=== PATIENT | female | born 1990 | race Caucasian/White ===

== ENCOUNTER 2022-01-23 14:45 | Inpatient (IN) | payer OTHER, BC ==
[2022-01-23] MEDS ORDERED: Fentanyl 100 MCG/2 ML VIAL ONE ×2 (14:55→16:03)
[2022-01-23] MEDS ORDERED: Dextrose 5% in Water 1,000 ML IV PRN (16:10)
[2022-01-23] MEDS ORDERED: Dextrose 50% Abboject 50 ML SYRINGE SLOW IVP PRN (16:10)
[2022-01-23] MEDS ORDERED: hydrALAZINE 20 MG/ML VIAL SLOW IVP PRN (16:12)
[2022-01-23] MEDS ORDERED: Ondansetron PF 4 MG/2 ML Vial IVP PRN (16:12)
[2022-01-23] MEDS ORDERED: Promethazine HCl 25 MG/ML VIAL IM PRN (16:12)
[2022-01-23] MEDS ORDERED: traMADol HCl 50 MG TAB PO PRN (16:14)
[2022-01-23] MEDS ORDERED: Ketorolac Tromethamine 30 MG/ML VIAL IVP SCH ×2 (16:15→18:15)
[2022-01-23] MEDS ORDERED: Morphine 2 MG/ML VIAL ONE (17:03)
[2022-01-23 17:35] LABS: SARS-CoV-2 NAA Rapid Test Not Detected (NotDetected)
[2022-01-23 17:58] VITALS: BMI 36.8
[2022-01-23] MEDS: Ketorolac Tromethamine 30 MG/ML VIAL IVP SCH (18:08)
[2022-01-23] MEDS: traMADol HCl 50 MG TAB PO SCH (18:13)
[2022-01-23] MEDS: Morphine 2 MG/ML VIAL SLOW IVP PRN ×2 (18:19→21:25)
[2022-01-23] MEDS: Sodium Chloride 0.9% 1,000 ML IV SCH (18:19)
[2022-01-23 18:32] LABS: #Eosinphils 0.1 thou/uL (0.0-0.7); #Lymphocytes 2.2 thou/uL (1.20-3.40); #Monocytes 0.7 thou/uL (0.11-0.59); #Neutrophils 10.2 thou/uL (1.40-6.50); %Basophils 0.4 % (0.0-1.0); %Eosinophils 0.7 % (0.0-10.0); %Lymphocytes 16.8 % (21.0-51.0); %Neutrophils 77.2 % (42.0-75.0); Hemoglobin 13.7 g/dL (12.0-16.0); Mean Corpuscular HGB CONC 33.4 g/dL (32.0-36.0); Mean Corpuscular Hemoglobin 28.8 pg (27.0-31.0); Mean Corpuscular Volume 86.1 fL (78.0-98.0); Mean Platelet Volume 8.6 fL (7.4-10.4); Platelet Count 301 thou/uL (130-400); RBC Distribution Width 13.5 % (11.5-14.5); Red Blood Cell (RBC) Count 4.76 mill/uL (4.20-5.40); White Blood Cell (WBC) Count 13.3 thou/uL (4.8-10.8)
[2022-01-23 18:48] LABS: ALT (SGPT) 37 U/L (8-55); AST (SGOT) 27 U/L (5-34); Albumin 4.2 g/dL (3.5-5.0); Alkaline Phosphatase 74 U/L (40-110); Anion Gap 17 mmol/L (10-20); BUN (Urea Nitrogen) 12 mg/dL (7.0-18.7); Bilirubin, Total 0.5 mg/dL (0.2-1.2); Calc. Creatinine Clearance 184 mL/min (70-130); Calcium 9.2 mg/dL (7.8-10.44); Carbon Dioxide 22 mmol/L (22-29); Chloride 103 mmol/L (98-107); Estimated GFR 115; Glucose 104 mg/dL (70-105); Potassium 3.7 mmol/L (3.5-5.1); Protein, Total 7.2 g/dL (6.0-8.3); Sodium 138 mmol/L (136-145)
[2022-01-23] MEDS ORDERED: Famotidine/PF 20 mg/2ml Vial SLOW IVP SCH (21:00)
[2022-01-23] MEDS: Senokot S 8.6-50 MG TAB PO SCH (21:26)
[2022-01-24] MEDS: Ketorolac Tromethamine 30 MG/ML VIAL IVP SCH ×4 (00:06→17:53)
[2022-01-24] MEDS: traMADol HCl 50 MG TAB PO SCH ×5 (00:09→23:04)
[2022-01-24] MEDS: Morphine 2 MG/ML VIAL SLOW IVP PRN ×2 (02:42→04:50)
[2022-01-24] MEDS: Sodium Chloride 0.9% 1,000 ML IV SCH (02:43)
[2022-01-24 06:17] LABS: #Eosinphils 0.2 thou/uL (0.0-0.7); #Lymphocytes 3.1 thou/uL (1.20-3.40); #Monocytes 0.7 thou/uL (0.11-0.59); #Neutrophils 4.5 thou/uL (1.40-6.50); %Basophils 0.5 % (0.0-1.0); %Eosinophils 2.4 % (0.0-10.0); %Lymphocytes 35.8 % (21.0-51.0); %Monocytes 8.4 % (0.0-10.0); %Neutrophils 52.9 % (42.0-75.0); Mean Corpuscular HGB CONC 33.3 g/dL (32.0-36.0); Mean Corpuscular Hemoglobin 28.7 pg (27.0-31.0); Mean Corpuscular Volume 86.2 fL (78.0-98.0); Platelet Count 252 thou/uL (130-400); RBC Distribution Width 13.4 % (11.5-14.5); White Blood Cell (WBC) Count 8.6 thou/uL (4.8-10.8)
[2022-01-24 06:33] LABS: INR-International Normal Ratio 1.1; PTT 28.3 sec (22.9-36.1); Prothrombin Time 13.8 sec (12.0-14.7)
[2022-01-24 06:36] LABS: Phosphorus 3.5 mg/dL (2.3-4.7)
[2022-01-24 06:37] LABS: Anion Gap 15 mmol/L (10-20); BUN (Urea Nitrogen) 10 mg/dL (7.0-18.7); Calc. Creatinine Clearance 201 mL/min (70-130); Calcium 8.8 mg/dL (7.8-10.44); Carbon Dioxide 21 mmol/L (22-29); Chloride 107 mmol/L (98-107); Estimated GFR 119; Glucose 78 mg/dL (70-105); Potassium 3.4 mmol/L (3.5-5.1); Sodium 140 mmol/L (136-145)
[2022-01-24] MEDS ORDERED: CEFAZOLIN 2 GM in Sodium Chloride 0.9% 100 ML IVPB SCH (08:00)
[2022-01-24] MEDS ORDERED: Insulin Regular 300 UNITS/3 ML VIAL SC PRN ×2 (08:14)
[2022-01-24] MEDS ORDERED: Cyclobenzaprine 10 MG TAB PO PRN (08:15)
[2022-01-24] MEDS ORDERED: Morphine 2 MG/ML VIAL SLOW IVP PRN (08:15)
[2022-01-24] MEDS ORDERED: Potassium Phosphate 30 MMOL in Sodium Chloride 0.9% 250 ML 250 ML IVPB SCH (08:30)
[2022-01-24] MEDS: DULoxetine 30 MG CAP PO SCH (08:51)
[2022-01-24] MEDS ORDERED: Sodium Chloride 0.9% 100 ML ONE (11:03)
[2022-01-24] MEDS ORDERED: CEFAZOLIN 2 GM VIAL ONE (11:03)
[2022-01-24] MEDS ORDERED: Midazolam HCl 2 mg/2 ml Vial ONE (11:03)
[2022-01-24] MEDS ORDERED: Promethazine HCl 25 MG/ML VIAL ONE (11:06)
[2022-01-24] MEDS ORDERED: fentaNYL Citrate/PF 100 MCG/2 ML SYRINGE ONE (11:06)
[2022-01-24] MEDS ORDERED: HYDROmorphone 0.5 MG/0.5 ML SYRINGE ONE ×2 (11:07→13:35)
[2022-01-24] MEDS: Acetaminophen 500 MG TAB PO SCH ×3 (11:32→20:41)
[2022-01-24] MEDS: Cyanocobalamin (Vitamin B-12) 1,000 MCG TAB PO SCH (11:33)
[2022-01-24] MEDS ORDERED: Lidocaine 1% MPF 2 ML VIAL ONE (11:33)
[2022-01-24] MEDS ORDERED: PROPOFOL 200 MG/20 ML VIAL ONE (11:33)
[2022-01-24] MEDS: Famotidine 20 MG TAB PO SCH ×2 (11:33→20:40)
[2022-01-24] MEDS ORDERED: Ketorolac Tromethamine 30 MG/ML VIAL ONE (11:33)
[2022-01-24] MEDS ORDERED: Ondansetron PF 4 MG/2 ML Vial ONE (11:33)
[2022-01-24] MEDS: Folic Acid 1 MG TAB PO SCH (11:33)
[2022-01-24] MEDS ORDERED: ePHEDrine 50 MG/ML VIAL ONE (11:33)
[2022-01-24] MEDS: Cholecalciferol (Vitamin D3) 400 UNITS TAB PO SCH (11:33)
[2022-01-24] MEDS: Polyethylene Glycol 3350 17 GM Packet PO SCH (11:34)
[2022-01-24] MEDS: Gabapentin 300 MG CAP PO SCH ×3 (11:34→20:40)
[2022-01-24] MEDS: Senokot S 8.6-50 MG TAB PO SCH ×2 (11:34→20:40)
[2022-01-24] MEDS ORDERED: Bupivacaine/Epinephrine 0.25% 30 ML VIAL ONE (11:58)
[2022-01-24] MEDS ORDERED: Bupivacaine PF 0.5% 30 ML VIAL ONE (11:58)
[2022-01-24] MEDS ORDERED: HYDROmorphone 2 MG/ML VIAL SLOW IVP PRN (12:55)
[2022-01-24] MEDS ORDERED: Promethazine HCl 25 MG/ML VIAL IM PRN (12:55)
[2022-01-24] MEDS ORDERED: Promethazine HCl 25 MG/ML VIAL IVPB PRN (12:55)
[2022-01-24] MEDS ORDERED: PACU-Morphine 4MG/ML VIAL SLOW IVP PRN (12:55)
[2022-01-24] MEDS ORDERED: Ondansetron HCl/PF 4 MG/2 ML Vial IVP PRN (12:55)
[2022-01-24] MEDS ORDERED: Meperidine HCl/PF 25 MG/ML VIAL ONE (13:18)
[2022-01-24] MEDS ORDERED: Fentanyl 100 MCG/2 ML VIAL ONE ×3 (13:26→14:06)
[2022-01-24] MEDS ORDERED: hydrALAZINE 20 MG/ML VIAL ONE (13:49)
[2022-01-24] MEDS: CEFAZOLIN 2 GM in Sodium Chloride 0.9% 100 ML IVPB SCH (20:42)
[2022-01-25] MEDS: Acetaminophen 500 MG TAB PO SCH ×3 (04:08→14:58)
[2022-01-25] MEDS: CEFAZOLIN 2 GM in Sodium Chloride 0.9% 100 ML IVPB SCH (04:09)
[2022-01-25] MEDS: traMADol HCl 50 MG TAB PO SCH ×2 (05:12→12:03)
[2022-01-25 05:51] LABS: #Eosinphils 0.3 thou/uL (0.0-0.7); #Lymphocytes 2.1 thou/uL (1.20-3.40); #Monocytes 0.9 thou/uL (0.11-0.59); #Neutrophils 5.4 thou/uL (1.40-6.50); %Basophils 0.2 % (0.0-1.0); %Eosinophils 3.2 % (0.0-10.0); %Lymphocytes 24.4 % (21.0-51.0); %Neutrophils 62.1 % (42.0-75.0); Hemoglobin 11.3 g/dL (12.0-16.0); Mean Corpuscular HGB CONC 32.6 g/dL (32.0-36.0); Mean Corpuscular Hemoglobin 28.5 pg (27.0-31.0); Mean Corpuscular Volume 87.4 fL (78.0-98.0); Mean Platelet Volume 8.7 fL (7.4-10.4); Platelet Count 252 thou/uL (130-400); RBC Distribution Width 13.7 % (11.5-14.5); Red Blood Cell (RBC) Count 3.97 mill/uL (4.20-5.40); White Blood Cell (WBC) Count 8.7 thou/uL (4.8-10.8)
[2022-01-25 06:12] LABS: Anion Gap 14 mmol/L (10-20); BUN (Urea Nitrogen) 6 mg/dL (7.0-18.7); Calc. Creatinine Clearance 189 mL/min (70-130); Calcium 8.5 mg/dL (7.8-10.44); Carbon Dioxide 21 mmol/L (22-29); Chloride 109 mmol/L (98-107); Estimated GFR 117; Glucose 96 mg/dL (70-105); Phosphorus 3.4 mg/dL (2.3-4.7); Potassium 3.7 mmol/L (3.5-5.1); Sodium 140 mmol/L (136-145)
[2022-01-25] MEDS: Polyethylene Glycol 3350 17 GM Packet PO SCH (08:22)
[2022-01-25] MEDS: DULoxetine 30 MG CAP PO SCH (08:23)
[2022-01-25] MEDS: Senokot S 8.6-50 MG TAB PO SCH (08:24)
[2022-01-25] MEDS: Gabapentin 300 MG CAP PO SCH ×2 (08:24→14:58)
[2022-01-25] MEDS: Famotidine 20 MG TAB PO SCH (08:24)
[2022-01-25] MEDS: Cholecalciferol (Vitamin D3) 400 UNITS TAB PO SCH (08:26)
[2022-01-25] MEDS: Cyanocobalamin (Vitamin B-12) 1,000 MCG TAB PO SCH (08:26)
[2022-01-25] MEDS: Folic Acid 1 MG TAB PO SCH (08:26)
[2022-01-25] MEDS ORDERED: Enoxaparin Sodium 30 MG/0.3 ML SYRINGE SC SCH (09:00)
[2022-01-25 12:47] VITALS: BP 124/82; TEMP 98.4
[2022-01-30] MEDS ORDERED: Ergocalciferol 1.25 MG(50,000 UNITS) CAP PO SCH (09:00)
== END 2022-01-25 16:00 | disposition home or self-care (01) | DRG 494 ==
LOC: ERS 14:45 → SJJU 16:10
PROVIDERS: ADMIT Surgery; ATTEND Surgery
PROC: 0QSG04Z Reposition Right Tibia with Internal Fixation Device, Open Approach (ICD-10-PCS; principal; 2022-01-24)
PROC: 0QSJ04Z Reposition Right Fibula with Internal Fixation Device, Open Approach (ICD-10-PCS; 2022-01-24)
DX: S82.851A Displaced trimalleolar fracture of right lower leg, initial encounter for closed fracture (principal); Z20.822 Contact with and (suspected) exposure to COVID-19; I10 Essential (primary) hypertension; E78.5 Hyperlipidemia, unspecified; E11.9 Type 2 diabetes mellitus without complications; E87.6 Hypokalemia; Y93.51 Activity, roller skating (inline) and skateboarding; V00.121A Fall from non-in-line roller-skates, initial encounter; Y92.833 Campsite as the place of occurrence of the external cause; Z90.49 Acquired absence of other specified parts of digestive tract; Z91.040 Latex allergy status; Z79.899 Other long term (current) drug therapy
CPT/HCPCS: 29515; 36415; 36416; 71045; 76000; 80048; 80053; 83735; 84100; 85025; 85610; 85730; 86850; 86900; 86901; 93005; 96374; 96375; 96376; C1713; G0390; J0360; J0690; J1170; J1650; J1885; J2175; J2250; J2270; J2405; J2550; J2704; J3010; J3490; J7050; S0020; S0028; U0002

== ENCOUNTER 2022-12-20 14:41 | Outpatient (CLI) | payer BC | END 2022-12-20 14:42 | disposition home or self-care (01) | LOC: SCSRAD 14:41 | PROVIDERS: ATTEND Family Medicine | DX: S99.912A Unspecified injury of left ankle, initial encounter (principal) ==

== ENCOUNTER 2023-06-15 15:42 | Outpatient (CLI) | payer BC | END 2023-06-15 15:43 | disposition home or self-care (01) | LOC: SCSRAD 15:42 | PROVIDERS: ATTEND Physician Assistant | DX: S99.912A Unspecified injury of left ankle, initial encounter (principal); S82.832A Other fracture of upper and lower end of left fibula, initial encounter for closed fracture ==